=== PATIENT | female | born 1970 | race Two or more races ===

== ENCOUNTER 2022-05-20 14:59 | Emergency (ER) | payer OTHER ==
[~2022-05-20] VITALS: Ht 154.9 cm; Wt 77.6 kg
== END 2022-05-20 21:03 | disposition home or self-care (01) ==
LOC: ER 14:59
DX: I10 Essential (primary) hypertension (principal); R56.9 Unspecified convulsions; R51.9 Headache, unspecified; Z88.8 Allergy status to other drugs, medicaments and biological substances

== ENCOUNTER 2024-11-25 11:42 | Emergency (ER) | payer OTHER ==
[~2024-11-25] VITALS: Ht 154.9 cm; Wt 83.9 kg
[2024-11-25] MEDS ORDERED: ORPHENADRINE CITRATE 30 MG/ML AMPUL ONE (13:26)
[2024-11-25] MEDS ORDERED: ORPHENADRINE CITRATE 30 MG/ML AMPUL IM ONE (13:30)
[2024-11-25 13:50] LABS: BASO % 0.6 % (0.1-1.2); EOS # 0.14 (0.04-0.54); EOS % 1.4 % (0.7-7.0); HEMATOCRIT 38.6 % (34.1-44.9); HEMOGLOBIN 13.1 g/dL (11.2-15.7); LYMPH # 2.06 (1.18-3.74); LYMPH % 20.5 % (19.3-53.1); MEAN CORPUSCULAR HEMOGLOBIN 28.3 pg (25.6-32.2); MONO # 0.59 (0.24-0.82); MONO % 5.9 % (4.7-12.5); NEUT # 7.16 (1.56-6.13); NEUT % 71.3 % (34.0-71.1); PLATELET COUNT 268 K/uL (163-369); RED BLOOD COUNT 4.63 M/uL (3.93-5.22); RED CELL DISTRIBUTION WIDTH 13.4 % (11.6-14.4)
[2024-11-25 14:22] LABS: CALCIUM 9.8 mg/dL (8.5-10.1); CREATININE SERUM 0.82 mg/dL (0.55-1.02); GFR 72.65; POTASSIUM 4.12 mEq/L (3.5-5.1)
== END 2024-11-25 16:30 | disposition home or self-care (01) ==
LOC: ER 11:42
PROVIDERS: Emergency Medicine
DX: M94.0 Chondrocostal junction syndrome [Tietze] (principal); R07.89 Other chest pain; Z88.6 Allergy status to analgesic agent; Z88.0 Allergy status to penicillin; Z88.8 Allergy status to other drugs, medicaments and biological substances